=== PATIENT | female | born 1990 | race Caucasian/White ===

== ENCOUNTER 2020-10-04 09:41 | Outpatient (CLI) | payer OTHER ==
[~2020-10-04] VITALS: Ht 160 cm; Wt 121.3 kg
[2020-10-04 10:19] LABS: BASOPHILS % (AUTO) 1 % (0-1); EOSINOPHILS % (AUTO) 0 % (1-7); LYMPHOCYTES % (AUTO) 10 % (22-44); MEAN CORPUSCULAR HGB CONC 34.9 g/dL (32.4-35.8); MONOCYTES % (AUTO) 8 % (2-9); NEUTROPHILS % (AUTO) 81 % (42-75); PLATELET COUNT 264 x10^3/uL (130-400); RED BLOOD COUNT 3.77 x10^6/uL (3.82-5.3); RED CELL DISTRIBUTION WIDTH 13.5 % (9.6-15.2)
[2020-10-04 10:20] LABS: MD NO
[2020-10-04 10:24] LABS: MICROSCOPIC INDICATED
[2020-10-04 10:28] LABS: CREATININE,URINE RANDOM 91.2 mg/dL
[2020-10-04 10:31] LABS: ALBUMIN 2.6 g/dL (3.4-5.0); ANION GAP 9 mmol/L (5-15); CALCIUM 8.5 mg/dL (8.5-10.1); CHLORIDE 108 mmol/L (98-107)
[2020-10-04 10:34] LABS: BILIRUBIN, DIRECT < 0.1 mg/dL (0.1-0.2)
[2020-10-04 10:44] LABS: ALANINE AMINOTRANSFERASE 16 U/L (12-78); ALKALINE PHOSPHATASE 76 U/L (45-117); BILIRUBIN,TOTAL 0.2 mg/dL (0.2-1.0); CREATININE 0.55 mg/dL (0.55-1.02); TOTAL PROTEIN 6.8 g/dL (6.4-8.2)
== END 2020-10-04 11:30 | disposition home or self-care (01) ==
LOC: LDOP 09:41
PROVIDERS: ATTEND Obstetrics & Gynecology
DX: O26.893 Other specified pregnancy related conditions, third trimester (principal); Z3A.37 37 weeks gestation of pregnancy
CPT/HCPCS: 36415; 59025; 80053; 81001; 82248; 82570; 84156; 84550; 85025; 87086

== ENCOUNTER 2020-10-15 15:18 | Outpatient (CLI) | payer OTHER ==
[~2020-10-15] VITALS: Ht 160 cm; Wt 122.7 kg
[2020-10-15 15:20] VITALS: BP 110/66
[2020-10-15] MEDS ORDERED: OMEP20TA62 PO (15:38)
[2020-10-15] MEDS ORDERED: PREN1TAB60 PO (15:38)
[2020-10-15] MEDS ORDERED: vit d PO (16:00)
[2020-10-15] MEDS ORDERED: FERR325T18 PO (16:01)
== END 2020-10-15 16:40 | disposition home or self-care (01) ==
LOC: LDOP 15:18
PROVIDERS: ATTEND Obstetrics & Gynecology
DX: O42.92 Full-term premature rupture of membranes, unspecified as to length of time between rupture and onset of labor (principal); Z3A.38 38 weeks gestation of pregnancy
CPT/HCPCS: 59025; 84112

== ENCOUNTER 2020-10-24 12:10 | Inpatient (IN) | payer OTHER ==
[~2020-10-24] VITALS: Ht 160 cm; Wt 125.0 kg
[~2020-10-24 12:10] MED LIST: FERR325T18 PO; OMEP20TA62 PO; PREN1TAB60 PO; vit d PO
[2020-10-29] MEDS ORDERED: NEWBORN KIT ONE (10:36)
[2020-10-29] MEDS ORDERED: MISOPROSTOL 200 MCG TABLET ONE (10:37)
[2020-10-29] MEDS ORDERED: OXYTOCIN 30U/ 0.9% NaCL 500ML 500 ML ONE (10:37)
[2020-10-29] MEDS ORDERED: LIDOCAINE 1%, 20ML ONE (10:37)
[2020-10-29] MEDS: LACTATED RINGERS 1,000 ML IV SCH ×2 (11:15→23:10)
[2020-10-29] MEDS ORDERED: FENTANYL PF 100 MCG/2ML IVPush PRN (11:30)
[2020-10-29] MEDS ORDERED: TERBUTALINE 1 MG/ML, 1ML SQ PRN (11:30)
[2020-10-29] MEDS ORDERED: OXYTOCIN 30U/ 0.9% NaCL 500ML 500 ML IV ONE (11:30)
[2020-10-29] MEDS ORDERED: FENTANYL PF 100 MCG/2ML IV PRN (11:30)
[2020-10-29] MEDS ORDERED: PLEASE ENTER HEIGHT AND WEIGHT MC SCH ×2 (11:30→12:00)
[2020-10-29] MEDS ORDERED: TERBUTALINE 1 MG/ML, 1ML IVPush PRN (11:30)
[2020-10-29] MEDS ORDERED: D5%-LACTATED RINGERS 1,000 ML IV SCH (11:30)
[2020-10-29] MEDS ORDERED: MISOPROSTOL 25 MCG TABLET ONE (11:39)
[2020-10-29 11:44] LABS: BASOPHILS % (AUTO) 1 % (0-1); EOSINOPHILS % (AUTO) 0 % (1-7); LYMPHOCYTES % (AUTO) 11 % (22-44); MEAN CORPUSCULAR HEMOGLOBIN 30.5 pg (27.0-34.8); MEAN CORPUSCULAR HGB CONC 34.2 g/dL (32.4-35.8); MEAN PLATELET VOLUME 9.3 fL (7.4-10.4); MONOCYTES % (AUTO) 7 % (2-9); NEUTROPHILS % (AUTO) 82 % (42-75); PLATELET COUNT 255 x10^3/uL (130-400); RED CELL DISTRIBUTION WIDTH 13.9 % (9.6-15.2)
[2020-10-29] MEDS: MISOPROSTOL 25 MCG TABLET VG PRN ×2 (11:50→16:15)
[2020-10-29] MEDS ORDERED: OXYTOCIN 30U/ 0.9% NaCL 500ML 500 ML IV PRN (12:00)
[2020-10-29] MEDS ORDERED: FENTANYL/BUPIV./NS/PF 250 ML EPIDCONT ONE (23:24)
[2020-10-29] MEDS ORDERED: EPHEDRINE 50 MG/ML, 1ML IVPush PRN (23:30)
[2020-10-29] MEDS ORDERED: LACTATED RINGERS 1,000 ML IVBOLUS PRN (23:30)
[2020-10-29] MEDS ORDERED: FENTANYL/BUPIV./NS/PF 250 ML EPIDCONT SCH (23:30)
[2020-10-29] MEDS ORDERED: NALOXONE 0.4 MG/ML, 1ML IVPush PRN (23:30)
[2020-10-29] MEDS ORDERED: LACTATED RINGERS 1,000 ML IV SCH (23:30)
[2020-10-30] MEDS ORDERED: ONDANSETRON 2MG/ML, 2ML ONE ×2 (02:27→09:38)
[2020-10-30] MEDS ORDERED: CALCIUM CARBONATE 500 MG TAB.CHEW ONE (02:28)
[2020-10-30] MEDS ORDERED: ONDANSETRON 2MG/ML, 2ML IVPush PRN ×2 (07:30→11:00)
[2020-10-30] MEDS: LACTATED RINGERS 1,000 ML IV SCH ×3 (07:56→19:00)
[2020-10-30] MEDS ORDERED: AZITHROMYCIN 500 MG in SODIUM CHLORIDE 0.9% 250 ML IV ONE (09:00)
[2020-10-30] MEDS ORDERED: METOCLOPRAMIDE 5 MG/ML, 2ML ONE (09:28)
[2020-10-30] MEDS ORDERED: SODIUM CITRATE/CITRIC ACID 15 ML UDC ONE (09:28)
[2020-10-30] MEDS ORDERED: EPHEDRINE 50 MG/ML, 1ML ONE (09:38)
[2020-10-30] MEDS ORDERED: FENTANYL PF 100 MCG/2ML ONE ×2 (09:38→09:51)
[2020-10-30] MEDS ORDERED: CEFAZOLIN 1,000 MG ONE (09:38)
[2020-10-30] MEDS ORDERED: PROPOFOL 10 MG/ML, 20ML ONE (09:38)
[2020-10-30] MEDS ORDERED: PHENYLEPHRINE 10 MG/ML ONE (09:38)
[2020-10-30] MEDS ORDERED: KETOROLAC 30 MG/1 ML ONE (09:38)
[2020-10-30] MEDS ORDERED: DEXAMETHASONE 4 MG/ML, 1ML ONE (09:38)
[2020-10-30] MEDS ORDERED: OXYTOCIN 10 UNITS/ML, 1ML ONE (09:38)
[2020-10-30] MEDS ORDERED: SUCCINYLCHOLINE 20 MG/ML, 10ML ONE (09:38)
[2020-10-30] MEDS ORDERED: morphine SULFATE/PF 0.5 MG/ML, 10ML ONE (09:57)
[2020-10-30] MEDS: KETOROLAC 30 MG/1 ML IV SCH ×3 (10:20→22:40)
[2020-10-30] MEDS ORDERED: GLYCERIN ADULT SUPP PR PRN (11:00)
[2020-10-30] MEDS ORDERED: FENTANYL PF 100 MCG/2ML IV PRN (11:00)
[2020-10-30] MEDS ORDERED: CARBOPROST TROMETHAMINE 250 MCG/ML, 1ML IM PRN (11:00)
[2020-10-30] MEDS ORDERED: BISACODYL 10 MG SUPP PR PRN (11:00)
[2020-10-30] MEDS ORDERED: METOPROLOL 1 MG/ML, 5ML IV PRN (11:00)
[2020-10-30] MEDS ORDERED: MIDAZOLAM 1 MG/ML, 2ML IV PRN (11:00)
[2020-10-30] MEDS ORDERED: LABETALOL 5MG/ML, 20ML IV PRN (11:00)
[2020-10-30] MEDS ORDERED: EPHEDRINE 50 MG/ML, 1ML IVPush PRN (11:00)
[2020-10-30] MEDS ORDERED: SIMETHICONE 80 MG CHEW TAB PO PRN (11:00)
[2020-10-30] MEDS ORDERED: HYDROmorphone 2 MG/ML, 1ML IVPush PRN (11:00)
[2020-10-30] MEDS ORDERED: hydrALAzine 20 MG/ML, 1ML IV PRN (11:00)
[2020-10-30] MEDS ORDERED: MEPERIDINE/PF 100 MG/ML IVPush PRN (11:00)
[2020-10-30] MEDS ORDERED: METOCLOPRAMIDE 5 MG/ML, 2ML IV PRN (11:00)
[2020-10-30] MEDS ORDERED: MEPERIDINE/PF 50 MG/ML IVPush PRN (11:00)
[2020-10-30] MEDS: OXYTOCIN 30U/ 0.9% NaCL 500ML 500 ML IV SCH ×2 (11:00→21:00)
[2020-10-30] MEDS ORDERED: LACTATED RINGERS 1,000 ML IV SCH (11:00)
[2020-10-30] MEDS ORDERED: ACETAMINOPHEN 325 MG TABLET PO PRN ×2 (11:00)
[2020-10-30] MEDS ORDERED: MISOPROSTOL 200 MCG TABLET PR PRN (11:00)
[2020-10-30] MEDS ORDERED: OXYcodone/APAP 5/325MG TABLET PO PRN (11:00)
[2020-10-30] MEDS ORDERED: METHYLERGONOVINE 0.2 MG/ML IM PRN (11:00)
[2020-10-30] MEDS ORDERED: MEPERIDINE/PF 25MG/0.5ML IVPush PRN (11:00)
[2020-10-30] MEDS ORDERED: ALBUTEROL SULFATE 2.5 MG/3 ML NPPB PRN (11:00)
[2020-10-30] MEDS ORDERED: MEASLES,MUMPS&RUBELLA VACC/PF 0.5 ML SQ-VACC PRN (11:00)
[2020-10-30] MEDS ORDERED: CALCIUM CARBONATE 500 MG TAB.CHEW PO PRN (11:00)
[2020-10-30] MEDS ORDERED: PROMETHAZINE 25 MG/ML, 1ML IV PRN (11:00)
[2020-10-30] MEDS ORDERED: OXYcodone 5 MG/5 ML ORAL.SOL UDC PO PRN (11:00)
[2020-10-30] MEDS ORDERED: DIPH,PERTUSS(ACELL),TET VAC/PF NC IM-VACC PRN (11:00)
[2020-10-30] MEDS ORDERED: ONDANSETRON 2MG/ML, 2ML IV PRN (11:00)
[2020-10-30] MEDS ORDERED: HYDROcodone/APAP 7.5-325MG/15ML UDC PO PRN (11:00)
[2020-10-30] MEDS ORDERED: SODIUM CITRATE/CITRIC ACID 30 ML UDC PO ONE (12:30)
[2020-10-30] MEDS ORDERED: METOCLOPRAMIDE 5 MG/ML, 2ML IV ONE (12:30)
[2020-10-30 13:15] VITALS: BP 120/69
[2020-10-30 16:42] VITALS: BP 107/68
[2020-10-30 18:07] LABS: BASOPHILS % (AUTO) 0 % (0-1); EOSINOPHILS % (AUTO) 0 % (1-7); LYMPHOCYTES % (AUTO) 3 % (22-44); MEAN CORPUSCULAR HEMOGLOBIN 30.2 pg (27.0-34.8); MEAN PLATELET VOLUME 9.1 fL (7.4-10.4); MONOCYTES % (AUTO) 3 % (2-9); NEUTROPHILS % (AUTO) 94 % (42-75); PLATELET COUNT 235 x10^3/uL (130-400); RED BLOOD COUNT 3.26 x10^6/uL (3.82-5.3); RED CELL DISTRIBUTION WIDTH 13.6 % (9.6-15.2)
[2020-10-30 19:50] VITALS: BP 115/73
[2020-10-31 00:10] VITALS: BP 101/61
[2020-10-31] MEDS: LACTATED RINGERS 1,000 ML IV SCH ×4 (03:00→23:21)
[2020-10-31 04:33] VITALS: BP 103/64
[2020-10-31] MEDS: KETOROLAC 30 MG/1 ML IV SCH ×4 (05:01→22:40)
[2020-10-31] MEDS: OXYTOCIN 30U/ 0.9% NaCL 500ML 500 ML IV SCH ×3 (07:00→23:21)
[2020-10-31 08:00] VITALS: BP 110/74
[2020-10-31] MEDS: DOCUSATE 100 MG CAPSULE PO PRN ×2 (08:04→19:35)
[2020-10-31] MEDS ORDERED: PRENATAL VIT/IRON/FA 1 EACH TABLET PO SCH (09:00)
[2020-10-31] MEDS: OXYcodone/APAP 5/325MG TABLET PO PRN ×2 (15:02→19:35)
[2020-10-31 19:30] VITALS: BP 115/76
[2020-11-01] MEDS: OXYcodone/APAP 5/325MG TABLET PO PRN ×3 (01:51→13:10)
[2020-11-01] MEDS: KETOROLAC 30 MG/1 ML IV SCH (04:54)
[2020-11-01 08:30] VITALS: BP 121/81
[2020-11-01] MEDS: DOCUSATE 100 MG CAPSULE PO PRN (08:39)
[2020-11-01] MEDS ORDERED: IBUPROFEN 600 MG TABLET PO PRN (11:00)
== END 2020-11-01 15:36 | disposition home or self-care (01) | DRG 788 ==
LOC: LDIP 10-29 10:00 → 2NW 10-30 13:07
PROVIDERS: ADMIT Obstetrics & Gynecology; ATTEND Obstetrics & Gynecology
PROC: 10D00Z1 Extraction of Products of Conception, Low, Open Approach (ICD-10-PCS; principal; 2020-10-30)
DX: O48.0 Post-term pregnancy (principal); O35.8XX0 Maternal care for other (suspected) fetal abnormality and damage, not applicable or unspecified; O69.81X0 Labor and delivery complicated by cord around neck, without compression, not applicable or unspecified; O77.9 Labor and delivery complicated by fetal stress, unspecified; O99.214 Obesity complicating childbirth; Z37.0 Single live birth; Z3A.40 40 weeks gestation of pregnancy; Z80.3 Family history of malignant neoplasm of breast; Z80.51 Family history of malignant neoplasm of kidney; Z80.7 Family history of other malignant neoplasms of lymphoid, hematopoietic and related tissues; Z20.822 Contact with and (suspected) exposure to COVID-19
CPT/HCPCS: 36415; J7121; 85025; 86592; 86850; 86900; 87635; G0378; J0456; J0690; J1100; J1885; J2274; J2405; J2704; J3010; J0330; J2370; J2590; J2765; J7050; J7120

== ENCOUNTER 2020-11-10 09:28 | Observation (INO) | payer OTHER ==
[~2020-11-10] VITALS: Ht 160 cm; Wt 114.3 kg
--- NOTE | 2020-11-10 09:45 | NUR ---
ASSUMED CARE OF PT. SHE IS IN A GOWN, HOOKED UP TO BP AND O2 MONITOR. PT REPORTS SHE HAD A C/S ABOUT 2 WEEKS AGO, THIS MORNING WOKE UP TO A LOT OF BLOOD. ASSESSED PT FUNDUS, IT IS FIRM -3, A LITTLE TRICKLE BUT NO NEW CLOTS. PT DENIES OTHER SX.
--- NOTE | 2020-11-10 10:24 | NUR ---
PT CALLED BECAUSE SHE WAS HAVING INCREASED CRAMPING AND FELT LIKE SHE WAS BLEEDING MORE. ASSESSED BLEEDING, SMALL AMOUNT PRESENT FROM LAST CHECK NO CLOTS. VSS, NADN, CALL LIGHT W/IN REACH. PT MOTHER IS BEDSIDE.
[2020-11-10 10:31] LABS: BASOPHILS % (AUTO) 0 % (0-1); EOSINOPHILS % (AUTO) 1 % (1-7); LYMPHOCYTES % (AUTO) 6 % (22-44); MEAN CORPUSCULAR HEMOGLOBIN 30.4 pg (27.0-34.8); MEAN CORPUSCULAR HGB CONC 34.8 g/dL (32.4-35.8); MEAN PLATELET VOLUME 6.8 fL (7.4-10.4); MONOCYTES % (AUTO) 5 % (2-9); NEUTROPHILS % (AUTO) 88 % (42-75); PLATELET COUNT 398 x10^3/uL (130-400); RED BLOOD COUNT 2.95 x10^6/uL (3.82-5.3); RED CELL DISTRIBUTION WIDTH 13.5 % (9.6-15.2)
[2020-11-10 10:42] LABS: ALBUMIN 2.6 g/dL (3.4-5.0); ANION GAP 6 mmol/L (5-15); CALCIUM 8.4 mg/dL (8.5-10.1); CHLORIDE 112 mmol/L (98-107); CREATININE 0.67 mg/dL (0.55-1.02)
--- NOTE | 2020-11-10 11:19 | NUR ---
PT RETURNED FROM US, SHE HAD SOME EMESIS WHEN SHE STOOD UP TO VOID. SHE DOES APPEAR PALE, STILL FEELING NAUSEOUS. VSS, THOUGH HER BP IS LOWER (SEE VS), NADN. CALL LIGHT W/IN REACH.
[2020-11-10] MEDS ORDERED: ONDANSETRON 2MG/ML, 2ML IVPush ONE (12:30)
--- NOTE | 2020-11-10 12:31 | NUR ---
PT WAS CLEANED UP, DENIES ANY NEEDS ALTHOUGH SHE IS TEARFUL. PT REASSURED. VSS, MEENAKSHI. CALL LIGHT W/IN REACH.
--- NOTE | 2020-11-10 12:45 | NUR ---
PT HAS BEEN INSTRUCTED TO REMAIN NPO. SHE DENIES NAUSEA AT THIS TIME, LET HER KNOW TO INFORM ME SHOULD SHE NEED IT. OB DOCTOR BEDSIDE NOW.
--- NOTE | 2020-11-10 13:01 | NUR ---
OB AT BEDSIDE, REMOVED SOME CLOTS. PT BLEEDING IS MINIMUM. OB IS GOING TO BE PLACING ADDITIONAL ORDERS FOR PT.
[2020-11-10] MEDS ORDERED: METHYLERGONOVINE 0.2 MG/ML IM ONE (13:03)
[2020-11-10] MEDS ORDERED: OXYTOCIN 30U/ 0.9% NaCL 500ML 500 ML IV ONE (13:06)
--- NOTE | 2020-11-10 13:17 | NUR ---
FLOAT RN AT BEDSIDE TO RELIEVE PRIMARY RN FOR BREAK. SPOKE WITH L[employer]D CHIEF ENGINEER [employer], MARCELA, WHO WILL COME DOWN TO ADMINISTER METHERGINE AND PITOCIN ORDERED ON EMAR BY DR. JONES.
--- NOTE | 2020-11-10 14:54 | NUR ---
PITOCIN GTT IS COMPLETE. CERTIFIED DENTAL ASSISTANT HAS BEEN NOTIFIED VIA PHONE, AND WILL RETURN TO THE BEDSIDE FOR DISPO. FEMALE STAFF IS ASSISTING HER W LINEN CHANGE, AND WE WILL PREPARE FOR D/C UPON COMPLETION OF CONSULT/FOLLOW-UP.
[2020-11-10] MEDS ORDERED: METH0.2T45 PO (15:30)
--- NOTE | 2020-11-10 15:32 | NUR ---
Task RN: Full linen change provided, pt cleaned. OBGYN back to bedside for second fundal massage. Plan to finish fluids, road test and reassess.
--- NOTE | 2020-11-10 16:36 | NUR ---
PT AMBULATED TO AND FROM THE RESTROOM WITH A STEADY GAIT. SHE APPEARS PALE AND DIAPHORETIC ALTHOUGH SHE DENIES ANY SXS AT THIS TIME. ERP TO RE-EVALUATE HEMOGLOBIN AND HEMATOCRIT LEVELS PRIOR TO ANY FURTHER PLAN OF CARE.
[2020-11-10 17:10] LABS: BASOPHILS % (AUTO) 1 % (0-1); EOSINOPHILS % (AUTO) 0 % (1-7); LYMPHOCYTES % (AUTO) 5 % (22-44); MEAN CORPUSCULAR HEMOGLOBIN 29.4 pg (27.0-34.8); MEAN CORPUSCULAR HGB CONC 33.4 g/dL (32.4-35.8); MEAN PLATELET VOLUME 6.9 fL (7.4-10.4); MONOCYTES % (AUTO) 3 % (2-9); NEUTROPHILS % (AUTO) 91 % (42-75); PLATELET COUNT 385 x10^3/uL (130-400); RED BLOOD COUNT 2.78 x10^6/uL (3.82-5.3); RED CELL DISTRIBUTION WIDTH 13.3 % (9.6-15.2)
[2020-11-10 17:34] VITALS: BP 109/74
== END 2020-11-10 18:00 | disposition home or self-care (01) ==
LOC: ED 10:02 → EDIP 15:25
PROVIDERS: ADMIT Emergency Medicine; ATTEND Emergency Medicine
DX: O72.2 Delayed and secondary postpartum hemorrhage (principal); D62 Acute posthemorrhagic anemia; Z88.1 Allergy status to other antibiotic agents
CPT/HCPCS: 36415; 76830; 80048; 82040; 85025; 96360; 96372; 99284; G0378; J2210; J2590

== ENCOUNTER 2020-11-15 15:37 | Day surgery (SDC) | payer OTHER ==
[~2020-11-15] VITALS: Ht 160 cm; Wt 110.4 kg
[~2020-11-15 15:37] MED LIST changes: +METH0.2T45 PO
[2020-11-15] MEDS ORDERED: CHLORHEXIDINE 15 ML UDC PO ONE (16:00)
[2020-11-15] MEDS ORDERED: PLEASE ENTER HEIGHT AND WEIGHT MC SCH (16:00)
[2020-11-15] MEDS ORDERED: LACTATED RINGERS 1,000 ML IV SCH (16:00)
[2020-11-15 16:06] VITALS: BP 135/92
[2020-11-15] MEDS ORDERED: VITAMIN D PEG (16:06)
[2020-11-15] MEDS ORDERED: CITALOPRAM PO (16:06)
[2020-11-15] MEDS ORDERED: IRON PO (16:06)
[2020-11-15] MEDS ORDERED: CHLORHEXIDINE 15 ML UDC ONE (16:14)
[2020-11-15] MEDS ORDERED: SILVER NITRATE STICK TP ONE (16:26)
[2020-11-15] MEDS ORDERED: EPINEPHRINE 1 MG/ML, 1ML ONE (16:26)
[2020-11-15] MEDS ORDERED: MISOPROSTOL 200 MCG TABLET ONE (16:26)
[2020-11-15] MEDS ORDERED: OXYTOCIN 10 UNITS/ML, 1ML ONE ×2 (16:26→17:59)
[2020-11-15] MEDS ORDERED: LIDOCAINE 1%, 20ML ONE (16:27)
[2020-11-15] MEDS ORDERED: TRANEXAMIC ACID 100 MG/ML, 10ML ONE (16:47)
[2020-11-15] MEDS ORDERED: METHYLERGONOVINE 0.2 MG/ML IM ONE (16:48)
[2020-11-15] MEDS ORDERED: FENTANYL PF 100 MCG/2ML ONE (16:59)
[2020-11-15] MEDS ORDERED: MIDAZOLAM 1 MG/ML, 2ML ONE (16:59)
[2020-11-15] MEDS ORDERED: CEFAZOLIN 1,000 MG ONE (18:11)
[2020-11-15] MEDS ORDERED: ONDANSETRON 2MG/ML, 2ML ONE (18:11)
[2020-11-15] MEDS ORDERED: PROPOFOL 10 MG/ML, 20ML ONE (18:11)
[2020-11-15] MEDS ORDERED: DEXAMETHASONE 4 MG/ML, 1ML ONE (18:11)
[2020-11-15 18:30] LABS: BASOPHILS % (AUTO) 1 % (0-1); EOSINOPHILS % (AUTO) 3 % (1-7); LYMPHOCYTES % (AUTO) 22 % (22-44); MEAN CORPUSCULAR HEMOGLOBIN 29.2 pg (27.0-34.8); MEAN CORPUSCULAR HGB CONC 33.7 g/dL (32.4-35.8); MEAN PLATELET VOLUME 6.8 fL (7.4-10.4); MONOCYTES % (AUTO) 7 % (2-9); NEUTROPHILS % (AUTO) 68 % (42-75); PLATELET COUNT 549 x10^3/uL (130-400); RED BLOOD COUNT 2.52 x10^6/uL (3.82-5.3); RED CELL DISTRIBUTION WIDTH 13.5 % (9.6-15.2)
[2020-11-15] MEDS ORDERED: PROMETHAZINE 25 MG/ML, 1ML IVPush PRN (18:30)
[2020-11-15] MEDS ORDERED: LABETALOL 5MG/ML, 20ML IV PRN (18:30)
[2020-11-15] MEDS ORDERED: MEPERIDINE/PF 25MG/0.5ML IVPush PRN (18:30)
[2020-11-15] MEDS ORDERED: METHOCARBAMOL 1,000 MG in DEXTROSE 5% 100 ML IV PRN (18:30)
[2020-11-15] MEDS ORDERED: LORazepam 2 MG/ML, 1ML IVPush PRN (18:30)
[2020-11-15] MEDS ORDERED: PROMETHAZINE 25 MG SUPP PR PRN (18:30)
[2020-11-15] MEDS ORDERED: ONDANSETRON 2MG/ML, 2ML IVPush PRN (18:30)
[2020-11-15] MEDS ORDERED: hydrALAzine 20 MG/ML, 1ML IV PRN (18:30)
[2020-11-15] MEDS ORDERED: HYDROmorphone 1 MG/ML, 1ML INJ IVPush PRN (18:30)
[2020-11-15] MEDS ORDERED: OXYcodone 5 MG/5 ML ORAL.SOL UDC PO PRN (18:30)
[2020-11-15] MEDS ORDERED: FENTANYL PF 100 MCG/2ML IV PRN (18:30)
[2020-11-15] MEDS ORDERED: ACETAMINOPHEN 325 MG TABLET PO PRN (18:30)
[2020-11-15 18:41] LABS: ALANINE AMINOTRANSFERASE 14 U/L (12-78); ANION GAP 6 mmol/L (5-15); CALCIUM 8.6 mg/dL (8.5-10.1); CHLORIDE 108 mmol/L (98-107); CREATININE 0.64 mg/dL (0.55-1.02)
[2020-11-15 18:43] LABS: ALKALINE PHOSPHATASE 71 U/L (45-117); BILIRUBIN,TOTAL 0.3 mg/dL (0.2-1.0); TOTAL PROTEIN 6.8 g/dL (6.4-8.2)
== END 2020-11-15 21:50 | disposition home or self-care (01) ==
LOC: OR 15:37
PROVIDERS: ATTEND Obstetrics & Gynecology
DX: O72.2 Delayed and secondary postpartum hemorrhage (principal); D62 Acute posthemorrhagic anemia; E66.01 Morbid (severe) obesity due to excess calories; F17.210 Nicotine dependence, cigarettes, uncomplicated; Z20.822 Contact with and (suspected) exposure to COVID-19; Z37.0 Single live birth; Z88.1 Allergy status to other antibiotic agents
CPT/HCPCS: 36415; 59160; 80053; 84703; 85014; 85018; 85025; 86850; 86900; 86923; 87635; 88305; J0690; J1100; J2250; J2405; J2590; J2704; J3010; J7120; J0171; J2210